=== PATIENT | female | born 1980 | race Caucasian/White ===

== ENCOUNTER 2017-05-20 19:14 | Emergency (ER) | payer MEDICAID, MEDICARE ==
[2017-05-20] MEDS ORDERED: Ketorolac Tromethamine 30 MG/ML VIAL ONE (21:06)
[2017-05-20] MEDS ORDERED: Acetaminophen 500 MG TAB ONE (21:08)
--- NOTE | 2017-05-20 21:08 | RAD ---
LEFT HAND THREE VIEWS 05/20/17 HISTORY: Injury to the left hand. FINDINGS: Joint spaces are preserved. No acute fracture or dislocation are apparent. Findings are overlap on t he lateral view, obscuring detail. IMPRESSION: No acute osseous abnormalities are demonstrated. POS: [facility]
== END 2017-05-20 22:21 | disposition home or self-care (01) ==
LOC: ERS 19:14
DX: S69.92XA Unspecified injury of left wrist, hand and finger(s), initial encounter (principal); E03.9 Hypothyroidism, unspecified; F31.9 Bipolar disorder, unspecified; F98.8 Other specified behavioral and emotional disorders with onset usually occurring in childhood and adolescence; F41.9 Anxiety disorder, unspecified; F17.210 Nicotine dependence, cigarettes, uncomplicated; J45.909 Unspecified asthma, uncomplicated; I10 Essential (primary) hypertension; W22.8XXA Striking against or struck by other objects, initial encounter
CPT/HCPCS: 29125; J1885

== ENCOUNTER 2017-05-22 02:13 | Emergency (ER) | payer MEDICARE | END 2017-05-22 04:12 | disposition home or self-care (01) | LOC: ERS 02:13 | DX: M79.642 Pain in left hand (principal); E05.90 Thyrotoxicosis, unspecified without thyrotoxic crisis or storm; I10 Essential (primary) hypertension; J45.909 Unspecified asthma, uncomplicated; F41.9 Anxiety disorder, unspecified; F31.9 Bipolar disorder, unspecified; F98.8 Other specified behavioral and emotional disorders with onset usually occurring in childhood and adolescence; F17.210 Nicotine dependence, cigarettes, uncomplicated; Z79.899 Other long term (current) drug therapy | CPT/HCPCS: 99283 ==

== ENCOUNTER 2017-05-26 20:33 | Emergency (ER) | payer MEDICARE ==
--- NOTE | 2017-05-26 22:16 | RAD ---
PA AND LATERAL CHEST: History: Cough. Comparison: 11-28-06 FINDINGS: Lung islas are clear. Heart and mediastinum appear normal. No infiltrate or vascular congestion seen . IMPRESSION: Unremarkable chest exam. POS: [facility]
[2017-05-26] MEDS ORDERED: Ketorolac Tromethamine 60 MG/2 ML VIAL ONE (22:20)
== END 2017-05-26 22:30 | disposition home or self-care (01) ==
LOC: ERS 20:33
DX: R07.81 Pleurodynia (principal); E03.9 Hypothyroidism, unspecified; I10 Essential (primary) hypertension; J45.909 Unspecified asthma, uncomplicated; M81.0 Age-related osteoporosis without current pathological fracture; F31.9 Bipolar disorder, unspecified; F41.9 Anxiety disorder, unspecified; F98.8 Other specified behavioral and emotional disorders with onset usually occurring in childhood and adolescence; F17.210 Nicotine dependence, cigarettes, uncomplicated
CPT/HCPCS: 71020; J1885

== ENCOUNTER 2020-03-02 14:01 | Outpatient (CLI) | payer MEDICARE, MEDICAID ==
--- NOTE | 2020-03-02 14:59 | CT ---
CT of thetemporal bones: 03/02/2020 COMPARISON:None available HISTORY:Left otorrhea, perforation of left tympanic membrane, perforation of right tympanic membrane, to prior left-sided surgeries for cholesteatoma. TECHNIQUE: Serial axial CT imaging at0.5 mm intervals through the temporal bones with coronal reforma tted imaging. Findings:There is mild mucosal thickening involving the posterior aspect of the left ethmoid air cell s. Imaged osseous structures demonstrate no acute findings. Partially imaged brain parenchyma appears un remarkable. Right temporal bone: The internal auditory canal, cochlea, vestibule, vestibular aqueduct, and semici rcular canals appear within normal limits. The course of the facial nerve appears normal on the right. There are areas of marked thinning versus perforation of the tympanic membrane in the mid portion and superior portion on coronal reformatted imaging. Prussack's space is clear and the scutum is sharp. The tympanic cavity and the mastoid air cells appe ar unremarkable. The ossicles appear intact. Vascular foramina appear within normal limits. Left temporal bone: The patient is status post canal wall up mastoidectomy. The left director internal audit y canal, cochlea, vestibule, vestibular aqueduct, semicircular canals, and course of facial nerve appear unremarkable. There is minimal soft tissue debris within the lateral aspect of the external au ditory canal. The scutum is blunted. The ossicles appear intact. Prussak's space appears clear and the scutum is sharp. There is marked thinning versus perforation involving the midportion of the left tympanic membrane. Superior aspect of the tympanic membrane appears thickened and retracted medially. No evidence for osseous dehiscence. Vascular foramina appear unremarkable. Impression:Postoperative changes on the left. No convincing evidence for residual/recurrent cholestea chantal. Findings suggesting bilateral tympanic membrane perforation.
== END 2020-03-02 14:02 | disposition home or self-care (01) ==
LOC: BICCT 14:01
PROVIDERS: ATTEND Otolaryngology Plastic Surgery within the Head & Neck
DX: H72.91 Unspecified perforation of tympanic membrane, right ear (principal); H72.92 Unspecified perforation of tympanic membrane, left ear; H92.12 Otorrhea, left ear; Z98.890 Other specified postprocedural states
CPT/HCPCS: 70480